=== PATIENT | male | born 1990 | race Caucasian/White ===

== ENCOUNTER 2017-11-13 20:54 | Emergency (ER) | payer BC | END 2017-11-13 22:07 | disposition home or self-care (01) | LOC: E/R 20:54 | DX: J06.9 Acute upper respiratory infection, unspecified (principal) | CPT/HCPCS: 99283 ==

== ENCOUNTER 2018-03-03 22:21 | Emergency (ER) | payer BC ==
[2018-03-04] MEDS: ONDANSETRON (ODT) 4 MG TAB ODT (00:07)
[2018-03-04] MEDS: DIPHTH/TET/ACEL PERTUSS (ADULT) 0.5 ML VIAL IM* (00:09)
[2018-03-04] MEDS: KETOROLAC 60 MG INJ IM (00:10)
[2018-03-04 00:11] LABS: URINE BLOOD (Dip) POC Trace-intact (NEGATIVE); URINE GLUCOSE (Dip) POC Negative (NEGATIVE); URINE KETONES (Dip) POC Negative (NEGATIVE); URINE LEUKOCYTE EST (Dip) POC Negative (NEGATIVE); URINE NITRITE (Dip) POC Negative (NEGATIVE); URINE TOTAL PROTEIN POC Trace (NEGATIVE)
[2018-03-04] MEDS: RANITIDINE 150 MG TAB PO (00:16)
== END 2018-03-04 01:59 | disposition home or self-care (01) ==
LOC: FTE 03-04 01:59
DX: G43.909 Migraine, unspecified, not intractable, without status migrainosus (principal); K29.00 Acute gastritis without bleeding; Z23 Encounter for immunization
CPT/HCPCS: 81003; 90471; 90715; 96372; 99284-25

== ENCOUNTER 2018-03-11 12:00 | Emergency (ER) | payer BC | END 2018-03-11 13:05 | disposition home or self-care (01) | LOC: FTE 12:00 | DX: G51.0 Bell's palsy (principal) | CPT/HCPCS: 99283; Z7502 ==